=== PATIENT | male | born 1970 | race American Indian/Alaskan Native ===

== ENCOUNTER 2018-08-12 22:56 | Emergency (ER) | payer MEDICAID ==
[2018-08-12 23:11] VITALS: RESP 16
[2018-08-12] MEDS ORDERED: Sodium Chloride 0.9% 1,000 ML IV ONE (23:24)
--- NOTE | 2018-08-12 23:24 | C.PDOC ---
History Of Present Illness Patient presents to the ED with burning sensation in his chest associated with 2 episodes of vomiting since this morning. Patient states the vomit is dark brown in color. He is able to tolerate PO and denies any fever, chills, chest pain, and palpitations. Time Seen by Provider: 08/12/18 23:24 Chief Complaint (Nursing): Abdominal Pain History Per: Patient History/Exam Limitations: no limitations Onset/Duration Of Symptoms: Hrs Current Symptoms Are (Timing): Still Present Context: Other Severity: Moderate Pain Scale Rating Of: 4 Location Of Pain/Discomfort: Epigastric Radiation Of Pain To:: None Quality Of Discomfort: Burning Associated Symptoms: Vomiting (x2). denies: Fever, Chills, Chest Pain, Other (palpitations) Exacerbating Factors: None Alleviating Factors: None Last Bowel Movement: Yesterday Recent travel outside of the [place]: No Additional History Per: Patient Past Medical History Reviewed: Historical Data, Nursing Documentation, Vital Signs Vital Signs: Last Vital Signs Temp 98.9 F 08/12/18 23:04 Pulse 96 H 08/12/18 23:04 Resp 16 08/12/18 23:04 BP 132/81 08/12/18 23:04 Pulse Ox 14 L 08/12/18 23:04 Family History: States: No Known Family Hx - Social History Hx Alcohol Use: Yes Hx Substance Use: No Review Of Systems Constitutional: Negative for: Fever, Chills Cardiovascular: Negative for: Chest Pain, Palpitations Respiratory: Negative for: Cough, Shortness of Breath Gastrointestinal: Positive for: Vomiting (x2, dark brown). Negative for: Nausea Musculoskeletal: Positive for: Back Pain Skin: Negative for: Rash Neurological: Negative for: Weakness, Numbness Psych: Negative for: Anxiety Physical Exam - Physical Exam Appears: Non-toxic Skin: Warm, Dry Head: Normacephalic Oral Mucosa: Moist Neck: Supple Chest: Symmetrical, No Tenderness Cardiovascular: Rhythm Regular Respiratory: No Rales, No Rhonchi, No Wheezing Gastrointestinal/Abdominal: Soft, No Tenderness Back: Normal Inspection Extremity: Normal ROM Extremity: Bilateral: Atraumatic Neurological/Psych: Oriented x3 Gait: Steady ED Course And Treatment - Laboratory Results Result Diagrams: 08/12/18 23:37 08/12/18 23:37 ECG: Interpreted By Me, Viewed By Me ECG Rhythm: Sinus Rhythm (88), Nonspecific Changes O2 Sat by Pulse Oximetry: 94 Pulse Ox Interpretation: Normal Progress Note: Ordered EKG, blood work and urinalysis. Administered Pantoprazole, Ondansetron and IV fluids. Reevaluation Time: 02:22 Reassessment Condition: Improved Medical Decision Making Medical Decision Making: Upon provider reevaluation patient is feeling better, is medically stable, and requires no further treatment in the ED at this time. Patient will be discharged home with Rx for flagyl, protonix and zofran . Counseling was provided and all questions were answered regarding diagnosis and need for follow up with dr cruz. There is agreement to discharge plan. Return if symptoms persist or worsen. Disposition Counseled Patient/Family Regarding: Studies Performed, Diagnosis, Need For Followup, Rx Given - Disposition Referrals: Sanjiv Cruz MD [Medical Doctor] - Disposition: HOME/ ROUTINE Disposition Time: 23:24 Condition: FAIR Additional Instructions: Please return if symptoms recur Prescriptions: Metronidazole [Flagyl] 500 mg PO TID #21 tablet Ondansetron ODT [Zofran ODT] 1 odt PO BID PRN #6 odt PRN Reason: Nausea/Vomiting Pantoprazole Sodium [Protonix] 40 mg PO DAILY #15 ect Instructions: Acute Abdomen (Belly Pain), Adult (DC), Gastritis (DC) Forms: [employer] (Haitian) - Clinical Impression Clinical Impression: Abdominal pain, Gastritis, Enteritis - Scribe Statement The provider has reviewed the documentation as recorded by the Scribe (Stacie Gurrola) All medical record entries made by the Scribe were at my direction and personally dictated by me. I have reviewed the chart and agree that the record accurately reflects my personal performance of the history, physical exam, medical decision making, and the department course for this patient. I have also personally directed, reviewed, and agree with the discharge instructions and disposition.
[2018-08-12 23:40] LABS: BASO % 0.4 % (0.0-2.0); EOS % 0.6 % (0.0-4.0); HEMOGLOBIN 15.6 g/dL (12.0-18.0); LYMPH # 1.4 K/uL (1.0-4.3); LYMPH % 22.5 % (20.0-40.0); MEAN CELL VOLUME 93.6 fL (80.0-94.0); MEAN CORPUSCULAR HEMOGLOBIN 33.4 pg (27.0-31.0); MEAN CORPUSCULAR HGB CONC 35.7 g/dL (33.0-37.0); MEAN PLATELET VOLUME 9.9 fL (7.2-11.7); MONO # 0.5 K/uL (0.0-0.8); MONO % 8.7 % (0.0-10.0); NEUT # 4.1 K/uL (1.8-7.0); NEUT % 67.8 % (50.0-75.0); NRBC % 0.1 % (0.0-2.0); RBC 4.67 Mil/uL (4.40-5.90); RED CELL DISTRIBUTION WIDTH 12.8 % (11.5-14.5)
[2018-08-12 23:57] LABS: ALB/GLOB RATIO 1.3 (1.0-2.1); ALBUMIN 4.9 g/dL (3.5-5.0); ALT/SGPT 38 U/L (21-72); AST/SGOT 66 U/L (17-59); BLOOD UREA NITROGEN 17 mg/dL (9-20); CALCIUM 8.8 mg/dl (8.6-10.4); GFR NON-AFRICAN AMERICAN > 60; LIPASE 32 U/L (23-300)
[2018-08-13] MEDS ORDERED: Sodium Chloride 0.9% 1,000 ML ONE
[2018-08-13 00:11] LABS: SQUAMOUS EPITHIAL < 1 /hpf (0-5); URINE BILIRUBIN NEGATIVE (NEGATIVE); URINE BLOOD NEGATIVE (NEGATIVE); URINE CLARITY Clear (Clear); URINE COLOR Yellow (YELLOW); URINE GLUCOSE (UA) NORMAL (Normal); URINE LEUKOCYTE ESTERASE NEG Leu/uL (Negative); URINE PROTEIN 1+ mg/dL (NEGATIVE)
[2018-08-13 00:16] LABS: INR 1.1; PROTHROMBIN TIME 11.6 SECONDS (9.7-12.2)
[2018-08-13] MEDS ORDERED: Iodixanol 320 MG/ML 100 ML BOTTLE IV ONE (01:12)
[2018-08-13 01:33] VITALS: BP 134/69; PULSE 69; TEMP 98.7
[2018-08-13 02:25] VITALS: O2SAT 94
--- NOTE | 2018-08-13 14:30 | CT ---
Date of service: 08/13/2018 PROCEDURE: CT Abdomen and Pelvis with contrast HISTORY: mid epigastric pain COMPARISON: None available. TECHNIQUE: Contrast dose: 100 mL Visipaque IV Radiation dose: Total exam DLP = 1097.78 mGy-cm. This CT exam was performed using one or more of the following dose reduction techniques: Automated exposure control, adjustment of the mA and/or kV according to patient size, and/or use of iterative reconstruction technique. FINDINGS: LOWER THORAX: No visible consolidation, pleural effusion, or pneumothorax. LIVER: Hypoattenuation of the liver may be seen in the setting of hepatic steatosis. GALLBLADDER AND BILE DUCTS: Unremarkable. PANCREAS: Unremarkable. SPLEEN: Unremarkable. ADRENALS: Unremarkable. KIDNEYS AND URETERS: The kidneys enhance symmetrically. No hydronephrosis or obstructing calculus identified. VASCULATURE: No aortic aneurysm. BOWEL: Stomach is nondistended. Lack of oral contrast limits evaluation for bowel pathology. Bowel loops appear within normal limits of caliber without evidence of obstruction. Mild small bowel wall thickening. Diverticulosis without CT evidence of acute diverticulitis. APPENDIX: The appendix appears mildly dilated measuring approximately 9 mm in diameter. No significant adjacent inflammatory changes appreciated. Correlate clinically as acute appendicitis cannot be excluded. PERITONEUM: No significant free fluid. No definite free air. LYMPH NODES: Sub cm prominent mesenteric lymph nodes, nonspecific. BLADDER: Under distention of the urinary bladder appears otherwise unremarkable. REPRODUCTIVE: Prostate gland measures approximately 3.8 x 4.5 cm. BONES: Degenerative changes. OTHER FINDINGS: None. IMPRESSION: The appendix appears mildly dilated measuring approximately 9 mm in diameter. No significant adjacent inflammatory changes appreciated. Correlate clinically as acute appendicitis cannot be excluded. Mesenteric lymph nodes, nonspecific. Mild hepatic steatosis. Mildly small bowel wall thickening; correlate for possibility of enteritis. The prostate gland measures approximately 3.8 x 4.5 cm. Recommend correlation with PSA. Additional findings as above. Preliminary impression was provided by [employer]. Case discussed with MOISÉS Patel on 08/13/18 at 219pm
--- NOTE | 2018-08-15 21:45 | CARD ---
APPROVED REPORT Date of service: 08/13/2018 EKG Measurement Heart [id number] <Conclusion> Normal sinus rhythm Nonspecific ST and T wave abnormality Abnormal ECG
== END 2018-08-13 02:30 | disposition home or self-care (01) ==
LOC: C.ER 22:56
DX: K29.70 Gastritis, unspecified, without bleeding (principal); K52.9 Noninfective gastroenteritis and colitis, unspecified; R10.9 Unspecified abdominal pain
CPT/HCPCS: 74177; 80053; 81001; 83690; 85025; 85610; 85730; 93005; 96361; 96374; 96375; 99284; C9113; J2405; J7030; Q9967

== ENCOUNTER 2018-08-13 16:12 | Emergency (ER) | payer MEDICAID ==
[2018-08-13 16:26] VITALS: BMI 33.0
--- NOTE | 2018-08-13 17:30 | C.PDOC ---
History Of Present Illness Patient reports that he was called to come back to the ED due to an abnormal CT finding. He was seen here last night for vomiting and diarrhea, states that he thinks that it was from shrimp he previously ate. He was prescribed zofran, flagyl, and pepcid and states that he feels much better. Was able to eat and work out today, has not vomited. He denies ever having abdominal pain. Has no complaints at this time. Time Seen by Provider: 08/13/18 17:17 Chief Complaint (Nursing): Abdominal Pain Past Medical History Vital Signs: Last Vital Signs Temp 76 F L 08/13/18 16:26 Pulse 76 08/13/18 16:26 Resp 20 08/13/18 16:26 BP 127/75 08/13/18 16:26 Pulse Ox 96 08/13/18 16:26 - Medical History PMH: No Chronic Diseases Family History: States: Unknown Family Hx - Social History Hx Alcohol Use: Yes Hx Substance Use: No Review Of Systems Except As Marked, All Systems Reviewed And Found Negative. Constitutional: Negative for: Fever, Chills Cardiovascular: Negative for: Chest Pain Respiratory: Negative for: Shortness of Breath Gastrointestinal: Negative for: Nausea, Vomiting, Abdominal Pain, Diarrhea Skin: Negative for: Rash Physical Exam - Physical Exam Appears: Well, No Acute Distress Skin: Normal Color, Warm, Dry Head: Atraumatic Eye(s): bilateral: Normal Inspection Oral Mucosa: Moist Chest: Symmetrical Cardiovascular: Rhythm Regular Respiratory: Normal Breath Sounds Gastrointestinal/Abdominal: Normal Exam, Soft, No Tenderness (including in RLQ), No Guarding, No Rebound Extremity: Normal ROM ED Course And Treatment O2 Sat by Pulse Oximetry: 96 Medical Decision Making Medical Decision Making: CT read from last night: IMPRESSION: The appendix appears mildly dilated measuring approximately 9 mm in diameter. No significant adjacent inflammatory changes appreciated. Correlate clinically as acute appendicitis cannot be excluded. Mesenteric lymph nodes, nonspecific. Mild hepatic steatosis. Mildly small bowel wall thickening; correlate for possibility of enteritis. The prostate gland measures approximately 3.8 x 4.5 cm. Recommend correlation with PSA. Additional findings as above. Preliminary impression was provided by [facility]. Case discussed with MOISÉS Patel on 08/13/18 at 219pm Patient with no abdominal pain, no RLQ tenderness, no fever, WBC 6.0 last night, symptoms have improved since his visit last night. Tolerating PO, not vomiting. Unlikely to have appendicitis at this time. Stable for discharge. Advised returning to the ED should symptoms change. Disposition - Disposition Disposition: HOME/ ROUTINE Disposition Time: 17:33 Condition: GOOD Additional Instructions: LUDIVINA LOVING, thank you for letting us take care of you today. Your provider was Francoise Obregon MD and you were treated for FOLLOW UP. The emergency medical care you received today was directed at your acute symptoms. If you were prescribed any medication, please fill it and take as directed. It may take several days for your symptoms to resolve. Return to the Emergency Department if your symptoms worsen, do not improve, or if you have any other problems. Please contact your doctor or call one of the physicians/clinics you have been referred to that are listed on the Patient Visit Information form that is included in your discharge packet. Bring any paperwork you were given at discharge with you along with any medications you are taking to your follow up visit. Our treatment cannot replace ongoing medical care by a primary care provider outside of the emergency department. Thank you for allowing the [facility] team to be part of your care today. If you had an X-Ray or CT scan: A Radiologist will review the ED reading if any change in treatment is needed we will contact you. If you had a blood, urine, or wound culture: It will take several days for the results, if any change in treatment is needed we will contact you. If you had an STI test: It will take 48 hours for the results. Please call after 1 week if you have not heard back. Instructions: Food Poisoning (DC) Forms: [employer] (Kazakh) - Clinical Impression Clinical Impression: Medical assessment
[2018-08-13 17:32] VITALS: BP 124/70; PULSE 78; RESP 18; TEMP 98.5
[2018-08-13 17:33] VITALS: O2SAT 96
== END 2018-08-13 17:32 | disposition home or self-care (01) ==
LOC: C.ER 16:12
DX: Z00.00 Encounter for general adult medical examination without abnormal findings (principal)